=== PATIENT | female | born 1935 | race Caucasian/White ===

== ENCOUNTER 2022-03-09 21:42 | Emergency (ER) | payer MEDICARE ==
[2022-03-09 22:14] LABS: HEMOGLOBIN 12.7 gm/dl (12.3-15.3); RED BLOOD COUNT 3.71 M/UL (4.00-5.10); WHITE BLOOD COUNT 6.1 K/UL (4.5-11.0)
== END 2022-03-10 02:27 | disposition home or self-care (01) ==
LOC: ER1 21:42
PROVIDERS: Physician Assistant Medical
DX: R04.0 Epistaxis (principal); I10 Essential (primary) hypertension
CPT/HCPCS: 30903; 80053; 85025; 85610; 99283; C9046